=== PATIENT | male | born 1975 | race Caucasian/White ===

== ENCOUNTER 2022-05-29 12:00 | Emergency (ER) | payer SELFPAY ==
[2022-05-29] VITALS (15 sets, daily range): BP systolic 138–157; BP diastolic 88–97; PULSE 31–95; RESP 22; TEMP 36.3; O2SAT 81–99; BMI 36.3
--- NOTE | 2022-05-29 12:39 | CRLHL7_ITS ---
For Patients: As a result of the Century Cures Act, medical imaging exams and procedure reports are released immediately into your electronic medical record. You may view this report before your referring provider. If you have questions, please contact your health care provider. INDICATION: COUGH TECHNIQUE: Chest 1 view. COMPARISON: None. FINDINGS: Cardiovascular and mediastinum: Heart size and vasculature are normal in caliber and appearance. Mediastinum is within normal limits. Lungs and pleural space: Lungs are clear. No sign of infiltrate or mass. No sign of pleural effusion. No pneumothorax. Bones and soft tissues: No significant findings. IMPRESSION: Unremarkable chest. Dictated by: Billy Arana MD @ 05/29/2022 13:32:24 (Electronically Signed)
--- NOTE | 2022-05-29 12:40 | CRLHL7_ITS ---
For Patients: As a result of the Century Cures Act, medical imaging exams and procedure reports are released immediately into your electronic medical record. You may view this report before your referring provider. If you have questions, please contact your health care provider. INDICATION: Shortness of breath and chest pain TECHNIQUE: CT chest PE was acquired with 95 cc Isovue 370 intravenous contrast. COMPARISON: None. FINDINGS: Heart and vasculature: Contrast opacification of the pulmonary arterial tree is adequate. No sign of pulmonary embolism. Heart size is normal. Thoracic aorta and pulmonary artery are normal in caliber. Lungs and pleural: No pleural effusion or pneumothorax. Mild ground-glass opacities in the lungs bilaterally. Lymph nodes/mediastinum: 11 millimeter right hilar lymph node. Chest wall: No masses. Upper abdomen: Diffusely decreased density of the liver without focal lesion. Bones: Unremarkable for age. IMPRESSION: 1. No evidence of pulmonary embolus. 2. Bilateral ground-glass opacities within the lungs consistent with a viral pneumonia, including COVID-19 pneumonia. 3. Moderate hepatic steatosis. Please note that all CT scans at this facility use dose modulation, iterative reconstruction, and/or weight-based dosing when appropriate to reduce radiation dose to as low as reasonably achievable. Dictated by Jose Alfredo Rogers MD @ 05/29/2022 1:58:04 PM (Electronically Signed)
[2022-05-29] MEDS: IPRAT-ALBUT 0.5-2.5 MG/3 ML NEB 1 NEB IH (12:44)
--- NOTE | 2022-05-29 12:45 | ED_ITS ---
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 They originate from [place], his [employer] company is head cord here and they were doing some work here. He was over the last 3 d ays developed a runny nose slight cough, it was thought that he had allergies. On the way down he has become more short of breath. He does over the road paddy. And does moving as well. He has had no history of asthma or allergies or pulmonary issues. He is not on any home meds. He has had no cardiac history. He denies any specific chest pain. His O2 sat on presentation is 94% on room air but he does seem short of breath he talks in short slightly labored sentences. He has reported no swelling in his legs no bleeding or clotting problems Related Data Previous Rx's Medication Instructions Recorded albuterol sulfate 90 mcg/actuation 2 inh inhalation Q6H PRN #1 ea 05/29/22 breath activated powder inhaler azithromycin 500 mg tablet 500 mg PO DAILY 7 days #9 tabs 05/29/22 (Zithromax) prednisone 20 mg tablet 20 mg PO BID 5 days #10 tabs 05/29/22 Allergies Allergy/AdvReac Type Severity Reaction Status Date / Time No Known Drug Allergies Allergy Verified 05/29/22 12:19 Review of Systems Status of ROS: Reports: 6 or more systems reviewed and unremarkable except as noted in History and below [facility] Social History Smoking Status: Never smoker Do you use any of these nicotine containing products: None Second hand tobacco smoke exposure: No How often do you have a drink containing alcohol: 2-4 times a month How many standard drinks containing alcohol do you have on a typical day: 5 or 6 How often do you have six or more drinks on one occasion: Monthly AUDIT-C Alcohol total score: 6 Non-prescribed substance use: marijuana (any form) service: No Exam Narrative: Exam Narrative: Objective vital signs unremarkable and slightly elevated diastolic pressure Patient is in mild distress and discomfort of breathing, talks in short slightly labored sentences. He is noncyanotic Neck is supple Chest inspiratory expiratory wheezing in all lung perera Heart rhythm regular heart murmur Abdomen soft nontender no masses Extremities are no edema neurologic nonfocal Skin is warm and dry Const: Vital Signs, click to edit/add: Vital Signs - 24 hr 05/29/22 12:20 Temperature 97.4 F L Pulse Rate [Pulse Oximeter] 75 Respiratory Rate 22 Blood Pressure [Le ft Upper Arm] 138/97 H Pulse Oximetry 94 Oxygen Delivery Me thod Room Air Course Vital Signs Vital signs: Initial Vital Signs Temperature 97.4 F L 05/29/22 12:20 Temperature Source Temporal Artery Scan 05/29/22 12:20 Pulse Rate 75 05/29/22 12:20 Pulse Rhythm Regular 05/29/22 12:20 Respiratory Rate 22 05/29/22 12:20 Blood Pressure 138/97 H 05/29/22 12:20 Blood Pressure Mean 110 05/29/22 12:20 Blood Pressure Position Supine 05/29/22 12:20 Pulse Oximetry 94 05/29/22 12:20 Oxygen Delivery Method Room Air 05/29/22 12:20 Vital Signs Temperature 97.4 F L 05/29/22 12:20 Pulse Rate 75 05/29/22 12:20 Respiratory Rate 22 05/29/22 12:20 Blood Pressure 138/97 H 05/29/22 12:20 Pulse Oximetry 94 05/29/22 12:20 Oxygen Delivery Method Room Air 05/29/22 12:20 Temperature 97.4 F L 05/29/22 12:20 Pulse Rate 84 05/29/22 16:02 Respiratory Rate 22 05/29/22 12:20 Blood Pressure 157/89 H 05/29/22 16:32 Pulse Oximetry 92 05/29/22 16:02 Oxygen Delivery Method Room Air 05/29/22 12:20 Medical Decision Making MDM Narrative Medical decision making narrative: 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 Will check laboratory studies, troponin, chest x-ray, CT as above, will give a DuoNeb now. Solu-Medrol 125 IV. Will put him on oximetry, metal trim erector. Disposition pending findings above Addendum: The patient's CT scan shows no PE, some viral type appearance, negative COVID test troponin is negative. The patient does have intermittent shortness of breath even nose O2 sat remains good, he did have wheezing, consistent with bronchospasm with his pulmonary infection will give him another albuterol. Will observe him for a period time longer. Hopefully the steroid will kick in and he will see some improvement. He can be discharged on Zithromax and inhaler and prednisone if he improves. If not improvement then might need hospitalization. Lab Data Labs: Lab Results 05/29/22 05/29/22 Range/Units 12:42 12:54 WBC 15.00 H (4.50-11.00) K/uL RBC 5.52 (4.30-5.90) m/uL Hgb 17.2 (13.5-17.5) gm/dL Hct 49.9 (37.0-53.0) % MCV 90 (80-100) fL MCH 31 (26-34) pg MCHC 35 (32-36) gm/dL RDW Coeff of Ragini 11.8 (11.5-15.5) % Plt Count 260 (140-440) K/uL Neut % (Auto) 69.2 (42.0-72.0) % Lymph % (Auto) 15.5 L (20-44) % [place] % (Auto) 7.9 (0.0-11.0) % Eos % (Auto) 6.1 (0.0-7.0) % Baso % (Auto) 0.4 (0.0-3.0) % Neut # (Auto) 10.40 H (1.7-7.0) K/uL Lymph # (Auto) 2.30 (0.90-2.90) K/uL [place] # (Auto) 1.20 H (0.00-0.90) K/UL Eos # (Auto) 0.90 H (0.00-0.50) K/uL Baso # (Auto) 0.10 (0.00-0.30) K/uL Sodium 139 (135-149) mmol/L Potassium 3.9 (3.6-5.1) mmol/L Chloride 107 (96-114) mmol/L Carbon Dioxide 25 (20-32) mmol/L BUN 16 (5-24) mg/dL Creatinine 0.7 (0.5-1.5) mg/dL Estimated Creat Clear 150.61 Estimated GFR 116 ml/min Glucose 107 (60-115) mg/dL Calcium 8.5 (8.4-10.6) mg/dL Total Bilirubin 1.2 (0.1-1.5) mg/dL Direct Bilirubin 0.2 (0.0-0.5) mg/dL AST 37 H (12-35) U/L ALT 53 H (4-50) U/L Alkaline Phosphatase 84 (40-150) U/L Troponin I < 0.01 L (0.01-0.04) ng/mL C-Reactive Protein 4.3 H (0.5-1.0) mg/dL NT-Pro-B Natriuret Pep < 20 pg/mL Total Protein 7.8 (6.0-8.3) g/dL Albumin 4.4 (3.3-5.0) g/dL SARS-CoV-2 (PCR) Negative SARS-CoV-2 (Negative) Influenza Type A (PCR) Negative PCR FLU A (Negative) Influenza Type B (PCR) Negative PCR FLU B (Negative) RSV (PCR) Negative PCR RSV (Negative) Discharge Plan Discharge Clinical Impression: Acute upper respiratory infection, Acute bronchospasm Patient Disposition: Home w/ Parent or Adult Condition: Improved Additional Instructions: Light activity, fluids, inhaler as needed, prednisone 20 mg b.i.d. x5 days, Zithromax 500 mg daily x1 week. Follow up with regular doctor next 2-3 days return sooner problems or concerns, would recommend not driving for the next 2-3 days. Activity Level: Light activity Discharge Diet: Regular Prescriptions: New azithromycin [Zithromax] 500 mg tablet 500 mg PO DAILY 7 Days Qty: 9 0RF albuterol sulfate 90 mcg/actuation aerosol powdr breath activated 2 inh inhalation Q6H PRNQty: 1 0RF prednisone 20 mg tablet 20 mg PO BID 5 Days Qty: 10 0RF Stand Alone Forms: MyHealth Info Instructions
[2022-05-29] MEDS: 0.9 % SODIUM CHLORIDE 500 ML 500 ML IV (12:48)
[2022-05-29 13:02] LABS: Basophils Percent Auto 0.4 % (0.0-3.0); Eosinophils Percent Auto 6.1 % (0.0-7.0); Hematocrit 49.9 % (37.0-53.0); Hemoglobin* 17.2 gm/dL (13.5-17.5); Immature Granulocytes Pct Auto 0.9 %; Lymphocytes Percent Auto 15.5 % (20-44); Mean Corpuscular HGB Conc 35 gm/dL (32-36); Mean Corpuscular Hemoglobin 31 pg (26-34); Mean Corpuscular Volume 90 fL (80-100); Monocytes Percent Auto 7.9 % (0.0-11.0); Neutrophils Percent Auto 69.2 % (42.0-72.0); Platelet Count* 260 K/uL (140-440); RDW Coefficient of Variation % 11.8 % (11.5-15.5); Red Blood Count 5.52 m/uL (4.30-5.90)
[2022-05-29 13:03] LABS: Slide Review Reflex No
[2022-05-29] MEDS: METHYLPREDNISOLONE SOD SUCC 62.5 MG/ML (125) 125 MG IVP (13:18)
[2022-05-29 13:23] LABS: Chloride* 107 mmol/L (96-114); Sodium* 139 mmol/L (135-149)
[2022-05-29 13:24] LABS: Albumin* 4.4 g/dL (3.3-5.0); Potassium* 3.9 mmol/L (3.6-5.1)
[2022-05-29 13:26] LABS: Creatinine* 0.7 mg/dL (0.5-1.5); Est. Creatinine Clearance* 150.61; Estimated Glomerular Filt Rate 116 ml/min
[2022-05-29 13:27] LABS: Alanine Aminotransferase* 53 U/L (4-50); Alkaline Phosphatase* 84 U/L (40-150); Aspartate Amino Transferase* 37 U/L (12-35); Bilirubin Direct* 0.2 mg/dL (0.0-0.5); Bilirubin Total* 1.2 mg/dL (0.1-1.5); Blood Urea Nitrogen* 16 mg/dL (5-24); Calcium* 8.5 mg/dL (8.4-10.6); Carbon Dioxide* 25 mmol/L (20-32); Glucose* 107 mg/dL (60-115); Total Protein* 7.8 g/dL (6.0-8.3)
[2022-05-29 13:27] LABS: PCR FLU A Negative PCR FLU A (Negative); PCR FLU B Negative PCR FLU B (Negative); PCR RSV Negative PCR RSV (Negative)
[2022-05-29 13:30] LABS: C Reactive Protein* 4.3 mg/dL (0.5-1.0)
[2022-05-29 13:38] LABS: SARS PCR* Negative SARS-CoV-2 (Negative)
[2022-05-29 13:41] LABS: NT Pro B Type NatriureticPept* < 20 pg/mL; Troponin I* < 0.01 ng/mL (0.01-0.04)
[2022-05-29] MEDS: ALBUTEROL SULFATE 2.5 MG/3 ML VIAL.NEB NEB (14:37)
[2022-05-29] MEDS: AZITHROMYCIN 250 MG TABLET 500 MG PO (14:44)
[2022-05-29] MEDS: cefTRIAXone 1 GM in 0.9 % SODIUM CHLORIDE Mini-bag 100 ML IVPB (14:45)
--- NOTE | 2022-05-31 11:52 | ED.NURSE ---
Pt's called to inquire about rx inhaler sent for pt. Call forwarded to charge nurse.
--- NOTE | 2022-05-31 17:36 | ED.NURSE ---
Patient called because he feels albuterol inhaler he was prescribed isn't working well - albuterol powder inhaler. Wondering if he can have a regular albuterol inhaler instead. Per barrett Loza for standard albuterol inhaler to be sent to [facility] pharmacy. Called in to pharmacist without difficulty. Patient aware.
== END 2022-05-29 17:15 | disposition home or self-care (01) ==
PROVIDERS: Emergency Provider Family Medicine
DX: J98.01 Acute bronchospasm (principal)
CPT/HCPCS: 36415; 71045; 71260; 80048; 80076; 83880; 84484; 85025; 86140; 87502; 87634; 87635; 94640; 94761; 96365; 96375; 99284; A9270; J0696; J2930; J7120; Q9967